=== PATIENT | female | born 1965 | race Asian ===

== ENCOUNTER 2025-07-10 05:21 | Day surgery (SDC) | payer BC, OTHER ==
[2025-07-08 10:31] LABS: MEAN PLATELET VOLUME 7.7 FL (7.4-10.4); PRE OP HEMATOCRIT 40.6 % (35.0-45.0); PRE OP HEMOGLOBIN 13.7 g/dL (12.0-16.0); PRE OP PLATELET COUNT 220 X10'3 (140-440); PRE OP WHITE BLOOD COUNT 7.7 10'3 (4.8-10.8); RED CELL DISTRIBUTION WIDTH 13.7 % (11.5-14.5)
[2025-07-08 10:36] LABS: LEUKOCYTE ESTERASE ,URINE NEGATIVE (Neg); NITRITES, URINE NEGATIVE (Neg); OCCULT BLOOD,URINE SMALL (Neg)
[2025-07-08 10:44] LABS: UA COLLECTION TYPE CLN CATCH MIDSTREAM
[2025-07-08 10:47] LABS: CREATININE 1.00 MG/DL (0.40-0.90); PRE OP ALT 22 U/L (30-65); PRE OP ANION GAP 5 (8-16); PRE OP AST 43 U/L (10-37); PRE OP BILIRUB, TOTAL 0.4 MG/DL (0.0-1.0); PRE OP GLUCOSE 84 MG/DL (70-104); PRE OP SODIUM 145 MMOL/L (135-145); TOTAL CARBON DIOXIDE 32.4 MMOL/L (24-32); eGFR 57 ML/MIN
[2025-07-08 10:51] LABS: PRE OP POTASSIUM 3.3 MMOL/L (3.4-5.1)
[2025-07-08 11:00] LABS: SQUAMOUS EPITHELIAL CELL,UR FEW /LPF (FEW)
[2025-07-08 11:01] LABS: MUCUS STRANDS FEW /LPF (Neg)
[2025-07-08 11:03] LABS: WBC CLUMPS,URINE MODERATE /HPF (NEGATIVE)
--- NOTE | 2025-07-08 11:58 | RADIOLOGY REPORT ---
DI CHEST,TWO VIEWS CLINICAL HISTORY: PREOP, pain COMPARISON: None TECHNIQUE: Frontal and lateral view of the chest was obtained FINDINGS: Lines and Tubes: None Lungs: No focal consolidation. Pleura: No effusion. No pneumothorax. Cardiomediastinal contours: Unremarkable Bones: No acute osseous abnormality. IMPRESSION: No acute cardiopulmonary disease.
[2025-07-10] VITALS (24 sets, daily range): BP systolic 115–154; BP diastolic 71–86; PULSE 61–109; RESP 11–17; TEMP 97.2–98.5; O2SAT 96–100
[~2025-07-10] VITALS: Ht 149.9 cm; Wt 55.0 kg
[~2025-07-10 05:21] MED LIST: AMLO2.5T5 PO; PANT40TA54 PO
[2025-07-10] MEDS: ceFOXitin sod/dextrose 2g/50ml 50 ML IV ONE (05:30)
[2025-07-10] MEDS ORDERED: midazolam 1 mg/ML 2ml injection ONE (07:11)
[2025-07-10] MEDS ORDERED: fentaNYL/PF 50MCG/1 ML 2ML syringe ONE ×2 (07:11→11:34)
[2025-07-10] MEDS ORDERED: BUPIVAcaine/PF 2.5mg/ml (0.25%) 10ml vial ONE ×2 (07:12→08:06)
[2025-07-10] MEDS ORDERED: LIDOcaine 1%/PF 5ML 10 MG/ML VIAL ONE (07:13)
[2025-07-10] MEDS ORDERED: dexamethasone sod phosphate 4mg/ml inj. ONE (07:14)
[2025-07-10] MEDS ORDERED: acetaminophen 1,000mg/100ml IV 100 ML IV ONE (07:14)
[2025-07-10] MEDS ORDERED: ondansetron/PF 4mg/2ml inj ONE (07:15)
[2025-07-10] MEDS ORDERED: rocuronium 10mg/ml inj IV ONE (07:15)
[2025-07-10] MEDS ORDERED: glycopyrrolate 0.2mg/ml inj ONE (07:15)
[2025-07-10] MEDS: ringers solution, lacted 1,000 ML IV SCH ×3 (07:15→11:59)
[2025-07-10] MEDS ORDERED: morphine 4 MG/ML inj SYRINge IV PRN (07:20)
[2025-07-10] MEDS ORDERED: hydrALAZINE 20mg/ml inj. IV PRN (07:20)
[2025-07-10] MEDS ORDERED: labetalol 20mg/4ml (5mg/ml) syringe IV PRN (07:20)
[2025-07-10] MEDS ORDERED: ondansetron/PF 4mg/2ml inj IV PRN ×2 (07:20→11:55)
[2025-07-10] MEDS ORDERED: fentaNYL/PF 50MCG/1 ML 2ML syringe IV PRN ×2 (07:20)
[2025-07-10] MEDS ORDERED: vasoPRESSIN 20 units/ml inj. ONE (08:01)
[2025-07-10] MEDS ORDERED: labetalol 20mg/4ml (5mg/ml) syringe IV ONE (08:50)
[2025-07-10] MEDS ORDERED: clindamycin phosphate 40gm vag cream ONE (10:41)
[2025-07-10] MEDS ORDERED: fluoroscein sod 10% (100mg/ml) 5ml vial ONE (11:30)
[2025-07-10] MEDS ORDERED: HYDROcodone/acetaminophen 10/325mg tab PO PRN (11:55)
[2025-07-10] MEDS ORDERED: normal saline 500ml IV soln 500 ML IV PRN (11:55)
[2025-07-10] MEDS ORDERED: magnesium hydroxide 30ml (MOM) UD suspension PO PRN (11:55)
[2025-07-10] MEDS ORDERED: metoclopramide 5 mg/ml inj IV PRN (11:55)
--- NOTE | 2025-07-10 13:39 | OPERATIVE REPORT ---
DATE OF SURGERY: 07/10/2025 DICTATING PHYSICIAN: Sotero Disla MD PREOPERATIVE DIAGNOSIS: Pelvic organ prolapse. POSTOPERATIVE DIAGNOSIS: Pelvic organ prolapse. SURGEON: Sotero Disla MD LOCAL BULK DRIVER: PRIMITIVO Godoy Do All Operator ANESTHESIOLOGIST: Dr. Martin. ANESTHESIA: General. PROCEDURES: Laparoscopic-assisted vaginal hysterectomy with bilateral salpingo-oophorectomy, uterosacral vaginal vault suspension, anterior and posterior repairs, and cystoscopy. ESTIMATED BLOOD LOSS: 200 mL. COMPLICATIONS: None. INDICATIONS: The patient is a 59-year-old postmenopausal female with significant pelvic organ prolapse. The patient declined conservative management with a pessary and agreed to the above procedures. LAPAROSCOPIC FINDINGS: Grossly normal-appearing uterus, tubes, and ovaries, there was notable posterior uterine fibroid. No other masses were seen. On vaginal inspection, again, there was moderate uterine prolapse, a moderate cystocele, and a very large rectocele extending along the length of the vagina. TECHNIQUE: The patient was taken to the OR where general anesthesia was found to be adequate. She was placed in a lithotomy position. She was prepped and draped in the usual sterile fashion. The cervix was infiltrated with a dilute solution of vasopressin and a GLENDY manipulator was placed and secured in the usual fashion. A transurethral catheter was placed. We changed gloves. A Veress needle was introduced through the umbilicus and the abdomen was insufflated with CO2 gas to 15 mmHg. The Veress needle was removed and a 5 mm trocar was placed through the umbilicus. An additional 5 mm port was placed at the right lower quadrant followed by an 8 mm port at the left lower quadrant. Pelvic organs were inspected with findings as noted above. In view of the patient's desires for bilateral salpingo-oophorectomy, we proceeded to LAVH and BSO. The right infundibulopelvic ligament was identified and sequentially coagulated and divided with the LigaSure device. The tube and ovary were then amputated at the tuboovarian uterine ligament complex. This was placed in the cul-de-sac for later extraction. The right round ligament was then coagulated and divided. The incision was then extended inferiorly along the anterior and posterior leaves of the broad ligament to the level of the cardinal ligaments. The uterine vessels were identified and coagulated and divided. We then proceeded to the left aspect. The left infundibulopelvic ligament was sequentially coagulated and divided with the LigaSure device. The incision was then extended anteriorly to include the left round ligament and the incision was extended inferiorly and anteriorly along the anterior leaves of the left broad ligament to the level of the cardinal ligaments. The left uterine vessels were identified and coagulated and divided. The vesicouterine peritoneum was then identified and sequentially transversely coagulated and divided with the LigaSure device. The bladder was then dissected up bluntly exposing the cervix. Anterior and posterior colpotomies were then sequentially performed with application of coagulating current through a monopolar spatula. At this point, the uterosacral ligaments were identified bilaterally and tagged for later identification. The CO2 gas was allowed to egress and we proceeded to the vaginal aspect of the surgery. The GLENDY manipulator was removed. The cervix was placed under traction at the anterior lip with a single-tooth tenaculum. The uterosacral ligaments were then sequentially and bilaterally clamp, cut, and suture ligated with 0 Vicryl sutures. The uterus with the attached left tube and ovary were then extracted at this time. Unfortunately, I was unable to locate the right tube and ovary within the cul-de-sac. The uterosacral ligaments were then sequentially and bilaterally suture ligated with 0 Ethibond sutures to the right and left margins of the vaginal cuff respectively. The vaginal cuff was then reapproximated with interrupted sutures of #0 Vicryl. The extent of the cystocele was then noted and the midline of the vaginal epithelium was infiltrated with a dilute solution of vasopressin. The epithelium was then sharply divided with Metzenbaum scissors. T-clamps were placed bilaterally for traction along the incision and the pubovesical fascia was identified and dissected off of the epithelium bilaterally. Plicating sutures with 2-0 Vicryl were placed along the incision. The excess vaginal epithelium was trimmed away. The vaginal epithelium was then closed with a running 2-0 Vicryl suture. We then proceeded to the posterior repair. The rectocele was noted to be quite extensive extending from the introitus to the vaginal cuff. Again, the midline was infiltrated with a dilute solution of vasopressin. The epithelium was divided along the length of the rectocele. The rectovaginal fascia was then dissected up bluntly and plicated with multiple 0 Vicryl sutures. The excess vaginal epithelium was trimmed away. Vistaseal was then applied to the area due to some oozing. Excellent hemostasis was obtained and the vaginal epithelium was closed with a running 2-0 Vicryl suture. A cystoscopy was now performed for evaluation of ureteral patency, which was confirmed after IV fluorescein was administered to the patient with clear ejection sequentially through the ureteral jets bilaterally. The procedure was terminated. We then proceeded to the final laparoscopic procedure. Hemostasis was confirmed throughout the pelvis. The right tube and ovary specimen was then located. The umbilical trocar was removed and the incision was extended bluntly to approximately 10 mm. An Endobag was placed intraabdominally and deployed under direct visualization with the laparoscope. The specimen was placed within the Endobag and extracted without difficulty. The umbilical fascia was then closed with a [id number] #0 Vicryl with the assistance of a GraNee needle. A solution of Marcaine and saline was then freely sprayed over the dome of the liver. The CO2 gas was allowed to egress, no bleeding was noted. All trocars leaves were removed. The skin incisions were then sequentially closed with 4-0 Vicryl subcuticularly and sealed off with Dermabond. Sponge, lap, instruments and needle counts were reported correct. COMPLICATIONS: None. PATHOLOGY: Uterus, tubes, and ovaries. DISPOSITION: The patient was taken to recovery in stable condition. Sotero Disla MD TID: [id number] RECEIPT: [id number] EVELIN SALOMON
[2025-07-10] MEDS: ketorolac trometh 30MG/ML vial 30 MG/ML VIAL IV PRN (14:03)
[2025-07-10] MEDS: calcium carbonate 500mg chew tablet PO PRN (16:31)
[2025-07-10] MEDS: docusate sod 100mg capsule PO SCH (19:59)
[2025-07-10] MEDS: HYDROcodone/acetaminophen 10/325mg tab PO PRN (22:07)
[2025-07-11 02:00] VITALS: BP 136/73; PULSE 116; RESP 18; TEMP 98.4; O2SAT 97
[2025-07-11 05:04] LABS: MEAN PLATELET VOLUME 7.9 FL (7.4-10.4); RED CELL DISTRIBUTION WIDTH 13.6 % (11.5-14.5)
[2025-07-11 05:17] LABS: CREATININE 0.96 MG/DL (0.40-0.90); TOTAL CARBON DIOXIDE 29.1 MMOL/L (24-32); eCRCL 44 ML/MIN; eGFR 60 ML/MIN
[2025-07-11 06:00] VITALS: BP 146/86; PULSE 49; RESP 18; TEMP 98.1; O2SAT 97
[2025-07-11 07:28] VITALS: RESP 18; O2SAT 97
[2025-07-11 10:00] VITALS: BP 117/58; PULSE 82; RESP 16; TEMP 97.9; O2SAT 98
--- NOTE | 2025-07-11 13:54 | DISCHARGE SUMMARY ---
DATE OF DISCHARGE: 07/10/2025 DICTATING PHYSICIAN: Sotero Disla MD ADMISSION DIAGNOSIS: The patient was admitted for surgical management of pelvic organ prolapse. DISCHARGE DIAGNOSES: Status post laparoscopic-assisted vaginal hysterectomy with bilateral salpingo-oophorectomy, uterosacral vaginal vault suspension, anterior and posterior repairs, and cystoscopy. ADMISSION INFORMATION: The patient is a 59-year-old postmenopausal female, who was referred to my office for evaluation of pelvic organ prolapse. The patient reported significant discomfort with the prolapse and declined management with the use of a pessary. Agreed and desired surgical management. HOSPITAL COURSE: On 07/10, the patient was taken to the OR where the above procedures were performed without complications. Her blood loss was averaged. Her postoperative course has been uncomplicated. The patient has remained afebrile throughout her hospital stay. PHYSICAL EXAMINATION: GENERAL: Today, the patient reports doing well, the patient is ambulating without difficulty and tolerating p.o. The patient states she is ready to go home. CURRENT VITAL SIGNS: Temperature of 97.9, blood pressure is 117/58, pulse of 82, respiratory rate of 16 and saturating 98% on room air. ABDOMEN: Soft, minimally distended. There is appropriate tenderness for postop day #1. Her incisions are clean, dry, and intact. PELVIC: Deferred. SIGNIFICANT LABS: The patient's current hemoglobin is 11.7. White count is 13.9. Chemistry panel is within normal limits. The patient's output is appropriate. ASSESSMENT AND PLAN: A 59-year-old female admitted for surgical management of pelvic organ prolapse. Status post LAVH, BSO, AMP repairs, and cystoscopy. She is doing well on postop day #1 and deemed ready for discharge home. FOLLOWUP: She will follow up in my office in 2 weeks. Duration of disability is approximately 6 weeks. DIET: To be regular. DISCHARGE MEDICATIONS: The patient will continue her outpatient medications as well as p.r.n. pain meds and a stool softener. ACTIVITY: She has been instructed to observe 6 weeks of pelvic rest and not to lift objects over 10 pounds. The patient can shower. She has been instructed to take no baths. DISPOSITION: Plan is to discharge her home today in improved condition. Sotero Disla MD TID: [id number] RECEIPT: [id number] EVELIN
--- NOTE | 2025-07-11 17:57 | PATHOLOGY REPORT ---
[facility] [address] [place] [address] SURGICAL PATHOLOGY REPORT CaseNumber: [id number] Surgeon:Sotero Disla M.D. CLINICAL INFORMATION CLINICAL INFORMATION: Prolapse, leiomyoma. DIAGNOSIS DIAGNOSIS: UTERUS, OVARIES. FALLOPIAN TUBES; LAPAROSCOPIC A - BENIGN LEIOMYOMATA OF UTERINE CORPUS. - ADENOMYOSIS. - ATROPHIC CHANGES. MICROSCOPIC DESCRIPTION MICROSCOPIC DESCRIPTION: Ten slides are examined. The candidate leiomyomas which range from subserosa l to intramural to submucosal are confirmed by microscopic examination. They have the usual lobulated contours and are composed of whorls and fascicles of bland smooth muscle cells. There are areas of h yalinization. There is no hemorrhage or necrosis or significant cytologic atypia. There is adenomyosi s which to extends to a depth of 1.5 cm in an area where the myometrium measures up to 1.9 cm in [facility]. Bias Binding Cutter sections of cervix do not reveal dysplasia. Bias Binding Cutter sections of serosa s ample a subserosal leiomyoma. Endometriosis is not identified. Bias Binding Cutter sections of both fallo pian tubes including complete transmural cross sections and distal fimbriated end do not reveal endom etriosis or dysplasia/neoplasia. Both of the ovaries are histologically unremarkable. They show babb es consistent with postmenopausal state. There is no endometriosis or neoplasia. (bb) GROSS DESCRIPTION GROSS DESCRIPTION: Received in a container of formalin labeled with the patient's name, number, and " uterus, tubes, bilateral ovaries" is an 84 gram uterus with attached cervix, attached left adnexa, an d detached right adnexa. The uterine corpus measures 5.5 x 5 x 4 cm. The attached cervix measures 3 c m long by 2.5 cm in diameter. The cervical os is multiparous. The serosa is somewhat roughened and pi nk-corea. There is a 1 cm subserosal nodule. Sectioning reveals a red-corea endometrium which measures up to 0.2 cm. There are two submucosal nodules which measure 0.3 and 0.7 cm.. Sectioning the myometrium reveals two intramural well-circumscribed whirled, white nodules with a bulging cut surface which me asure 1.4 and 1.8 cm. The myometrium measures up to 2 cm thick. Sectioning the cervix reveals andrews-wh ite mucosa without areas of ulceration. The right ovary measures 2 x 2 x 1 cm. Sectioning the ovary r eveals a solid cut surface. The attached segment of fallopian tube measures 4 cm long by 0.4 cm in di ameter. The fallopian tube is unremarkable. The left ovary measures 2 x 1.7 x 0.7 cm. Sectioning the ovary reveals a solid cut surface the attached segment of fallopian tube measures 5 cm long by 0.4 cm in diameter. The fallopian tube is unremarkable. Sections are submitted as follows: A1) CervixA2-A3) Endo and myometriumA4) Submucosal nodulesA5) Intramural nodulesA6-A7) Right adnexaA 8-A9) Left qawphoW80) Serosa The time at which the specimen was removed was 1020. The time at which the specimen was placed in [facility] was not provided. (wyb) Electronically signed by: Juan Bonds M.D. 07/11/2025 5:22:00 PM
== END 2025-07-11 15:09 | disposition home or self-care (01) ==
LOC: PAS 05:21 → SUR 3N 11:54 → PAS 07-11 15:09
PROVIDERS: ATTEND Obstetrics & Gynecology Obstetrics
DX: N81.4 Uterovaginal prolapse, unspecified (principal); N80.03 Adenomyosis of the uterus; D25.9 Leiomyoma of uterus, unspecified; I10 Essential (primary) hypertension; K21.9 Gastro-esophageal reflux disease without esophagitis; Z79.1 Long term (current) use of non-steroidal anti-inflammatories (NSAID); Z79.891 Long term (current) use of opiate analgesic; Z79.899 Other long term (current) drug therapy; Z98.890 Other specified postprocedural states; Z88.8 Allergy status to other drugs, medicaments and biological substances
CPT/HCPCS: 36415; 57265; 57283; 58552; 71046; 80048; 80053; 81001; 82948; 85025; 86885; 86900; 86901; 87081; 87088; J0131; J0694; J1100; J1885; J2250; J2270; J2405; J2704; J2710; J3010; J3490; J7030; J7120; Z7506; Z7508; Z7512; A4314; A4618; A7000; G0378

== ENCOUNTER 2025-10-30 15:46 | Inpatient (IN) | payer BC ==
[~2025-10-30] VITALS: Ht 149.9 cm; Wt 54.5 kg
--- NOTE | 2025-10-30 15:54 | ELECTROCARDIOGRAPH REPORT ---
[facility] Test Date: 2025-10-30 Test Time: 15:50:34 Pat Name: MAURICIO RENAE Department: EMERGENCY ROOM Room: [place] [address] Gender: F Employee Communications Manager: NATASHA : 1965 Requested By: REUBEN BERMAN Order Number: [id number] Reading MD: Dr. JANNY Doss Measurements Intervals Mead Rate: 100 P: 73 ID: [id number] QRS: 60 QRSD: 76 T: 5 QT: 343 QTc: 443 Interpretive Statements Sinus tachycardia Abnormal R-wave progression, early transition Electronically Signed On 10-31-2025 16:44:[address] JANNY Doss Please click the below link to view image of tracing.
[2025-10-30 16:17] LABS: MEAN PLATELET VOLUME 7.9 FL (7.4-10.4)
[2025-10-30 16:19] LABS: RED CELL DISTRIBUTION WIDTH 13.8 % (11.5-14.5)
--- NOTE | 2025-10-30 16:26 | RADIOLOGY REPORT ---
CHEST RADIOGRAPH INDICATION: CP TECHNIQUE: Single frontal view of the chest was obtained COMPARISON: None FINDINGS: Lines and Tubes: None Lungs: No focal consolidation. Pleura: No effusion. No pneumothorax. Cardiomediastinal contours: Heart size is within normal limits with uncoiling of the aorta. Bones: No acute osseous abnormality. IMPRESSION: No acute cardiopulmonary disease.
[2025-10-30 16:42] LABS: CREATININE 0.96 MG/DL (0.40-0.90); PRO BRAIN NATRIURETIC PEPTIDE 104 PG/ML (0-125); TOTAL CARBON DIOXIDE 24.5 MMOL/L (24-32); eCRCL 44 ML/MIN; eGFR 60 ML/MIN
--- NOTE | 2025-10-30 17:56 | Physician Documentation ---
History of Present Illness ~ Chief Complaint: Chest Pain Stated Complaint: WEAKNESS Time Seen by MD: 17:33 Mode of Arrival: EMS HPI The patient is a 59-year-old female with a history of hypertension and GERD who reportedly passed out in the bathtub while having chest pain. Her pulled her from the bath. They live remotely and she was brought here by helicopter. At the time of taking this history she has no complaint of chest pain, chest discomfort or shortness of breath. Medication Reconciliation Allergies: Coded Allergies: lisinopril (Verified Adverse Reaction, Intermediate, COUGH, 07/09/25) olmesartan (Verified Adverse Reaction, Intermediate, FEET BURN, 07/09/25) Scheduled Amlodipine Besylate (Amlodipine Besylate), 1 TAB PO DAILY, (Reported) Calcium Carbonate* (Oscal*), 1 TAB PO DAILY, (Reported) Pantoprazole Sodium (Pantoprazole Sodium), 1 TAB PO DAILY, (Reported) Past Medical History Smoking Status: Never smoker Review of Systems ROS Constitutional: Denies chills, fatigue, fever, weight gain or weight loss. HEENT: Denies hearing loss, sinus pressure or visual changes. Respiratory: Difficulty breathing previously, resolved at this time. Cardiovascular: Prior chest pain none now. Gastrointestinal: Denies abdominal pain, blood in stool, constipation, diarrhea, heartburn, loss of appetite, nausea or vomiting. Genitourinary: Denies painful urination (dysuria), excessive amount of urine (polyuria) or urinary frequency. Metabolic/Endocrine: Denies cold intolerance, heat intolerance, excessive thirst (polydipsia) or excessive hunger (polyphagia). Neurological: Denies dizziness, extremity numbness, extremity weakness, headaches, seizures or tremors. Psychiatric: Denies anxiety or depression. Integumentary: Denies breast discharge, breast lump, hives, mole change(s), rash or skin lesion. Musculoskeletal: Denies back pain, joint pain, joint swelling or neck pain. Hematologic: Denies easily bleeding, easily bruises, lymphedema or issues with blood clots. Immunologic: Denies food allergies or seasonal allergies. Physical Exam Vital Signs: Heart Rate: 104, Respiratory Rate: 19, BP: 146/69, Pulse Oximetry: 98, Weight: 54.550 Oxygen Flow Rate: 0 Physical Exam Physical Exam Vitals and nursing note reviewed. Constitutional: General: Patient is awake, alert, oriented x 4 in no acute distress and well appearing. Speech is clear and lucid. Appearance: Normal appearance. Patient is not ill-appearing, toxic-appearing or diaphoretic. HENT: Head: Normocephalic and atraumatic. Mouth/Throat: Mouth: Mucous membranes are moist. Pharynx: Oropharynx is clear. Eyes: General: No scleral icterus. Extraocular Movements: Extraocular movements intact. Pupils: Pupils are equal, round, and reactive to light. Neck: Supple, no Kernig or Brudzinski sign. Cardiovascular: Rate and Rhythm: Normal rate and regular rhythm. Heart sounds: No murmur heard. Pulmonary: Effort: No respiratory distress. Breath sounds: No wheezing, rhonchi or rales. Abdominal: General: There is no distension. Palpations: There is no fluid wave, hepatomegaly or mass. Tenderness: There is no abdominal tenderness. There is no guarding. Musculoskeletal: General: No swelling or deformity. Skin: Coloration: Skin is not jaundiced. Findings: No erythema or rash. Neurological: Mental Status: Patient is alert. Progress Results/Orders Results/Orders Orders - REUBEN BERMAN MD Chest,Single View (10/30/25 15:51) Monitor (10/30/25 15:51) Saline Lock (10/30/25 15:51) Oxygen (10/30/25 15:51) Page Hospitalist (10/30/25 17:47) Cta Chest Pe (10/30/25 17:50) Ct Head (10/30/25 17:50) Completed Orders - REUBEN BERMAN MD Chest,Single View (10/30/25 15:51) Cbc/Diff (10/30/25 15:51) BMP (10/30/25 15:51) PBNP (10/30/25 15:51) Electrocardiogram (10/30/25 15:51) Hs Troponin I W Calculations (10/30/25 15:51) Hs Troponin I W Calculations (10/30/25 17:51) Hs Troponin I W Calculations (10/30/25 18:51) Cta Chest Pe (10/30/25 17:50) Ct Head (10/30/25 17:50) Hgb A1c (10/30/25 16:06) Vital Signs 10/30/25 10/30/25 10/30/25 10/30/25 15:52 16:12 17:00 18:03 Pulse 100 95 104 90 Resp 18 11 19 17 B/P (MAP) 123/73 135/78 (97) 146/69 (94) 136/82 (100) Pulse Ox 100 98 98 97 O2 Flow Rate 0 0 0 0 10/30/25 10/30/25 19:15 20:05 Pulse 85 105 Resp 16 14 B/P (MAP) 141/80 (100) 140/81 (100) Pulse Ox 98 98 O2 Flow Rate 0 0 Laboratory Tests Test 10/30/25 16:06 10/30/25 17:17 10/30/25 18:57 White Blood Count 12.6 H Red Blood Count 4.35 Hemoglobin 13.1 Hematocrit 38.2 Mean Corpuscular Volume 87.7 Mean Corpuscular Hemoglobin 30.1 Mean Corpuscular Hemoglobin Concent 34.3 Red Cell Distribution Width 13.8 Platelet Count 212 Mean Platelet Volume 7.9 Neutrophils (%) (Auto) 84.3 H Lymphocytes (%) (Auto) 11.3 L Monocytes (%) (Auto) 3.7 Eosinophils (%) (Auto) 0.4 Basophils (%) (Auto) 0.3 Neutrophils # (Auto) 10.6 H Lymphocytes # (Auto) 1.4 Monocytes # (Auto) 0.5 Eosinophils # (Auto) 0.1 Basophils # (Auto) 0.0 CBC Comment Sodium Level 142 Potassium Level 3.3 L Chloride Level 104 Carbon Dioxide Level 24.5 Anion Gap 14 Blood Urea Nitrogen 15 Creatinine 0.96 H Estimated GFR/1.73 m2 60 BUN/Creatinine Ratio 15.6 Glucose Level 171 H Hemoglobin A1c 5.3 Calcium Level 9.0 Troponin I High Sensitivity 161 *H 263 *H 257 *H Pro-B-Type Natriuretic Peptide 104 Albumin 3.7 Chemistry Comments Troponin I High Sens Percent Delta 63 2 Troponin I Hi Sens Absolute Change 102 -6 Medical Decision Making Additional information obtaine: N/A Findings This 59-year-old lady had a syncopal episode in the bathtub. Her initial troponin here is 161. Heart Score: 4 Differential Dx:Considerations: Include: angina, aortic dissection, chest wall pain, esophageal reflux/spasm, myocardial infarction, pericarditis, pleuritis, pneumothorax, pulmonary embolus; Unlikely: cholelithiasis, CHF, costochondritis, gastritis, herpes zoster, pancreatitis, pneumonia, other Additional Information EKG medically necessary in the evaluation of chest pain and interpreted by me at the time of patient evaluation. Rhythm is sinus tachycardia with a rate of 100. Impression: Sinus tachycardia, otherwise normal EKG. ECG reading does not show any acute signs of obvious ischemia. No evidence of A- V block. No short SD, delta waves, or wide QRS concerning for [id number]-[id number]-[id number]. No long QT events on my read. I do not see evidence of Brugada with ST elevations in V1 through V3. No epsilon wave noted. No low voltage suggestive of pericardial effusion. No right ventricular strain pattern. Addendum Brief sign-out note I received sign-out on this patient at shift change. Pending CT head, CTA chest, and admission I personally interpreted the CT scan, and this shows no intracranial hemorrhage. No pulmonary embolus on the CTA chest. The patient was admitted to the medicine service for further workup and treatment Prashanth Ferrari MD Departure Disposition: ADMITTED INPATIENT Admitted to Inpatient Unit: to hospitalist Impression: Primary Impression: Chest pain Additional Impression: Syncopal episodes Referrals: NO PRIMARY CARE PROVIDER (PCP) Signature Scribe Signature: . Attestation: . REUBEN BERMAN MD Oct 30, 2025 17:56 PRASHANTH FERRARI MD Oct 31, 2025 04:00
[2025-10-30] MEDS ORDERED: magnesium sulf-water 4G/100mL 100 ML IV PRN (20:05)
[2025-10-30] MEDS ORDERED: potassium Cl 40MEQ/1/2NS 520ml 520 ML IV PRN (20:05)
[2025-10-30] MEDS ORDERED: magnesium Cl slow-release 64mg tablet PO PRN (20:05)
[2025-10-30] MEDS ORDERED: potassium Cl 20 mEq SR tablet PO PRN (20:05)
[2025-10-30] MEDS ORDERED: ondansetron/PF 4mg/2ml inj IV PRN (20:05)
[2025-10-30] MEDS ORDERED: magnesium sulf-water 2g/50mL 50 ML IV PRN (20:05)
[2025-10-30] MEDS ORDERED: HYDROcodone/acetaminophen 5mg/325mg tablet PO PRN (20:05)
[2025-10-30] MEDS ORDERED: mag hydrox/Alum hydrox/simeth 30ml oral suspension PO PRN (20:05)
[2025-10-30] MEDS ORDERED: magnesium hydroxide 30ml (MOM) UD suspension PO PRN (20:05)
[2025-10-30] MEDS ORDERED: HYDROcodone/acetaminophen 10/325mg tab PO PRN (20:05)
--- NOTE | 2025-10-30 20:17 | RADIOLOGY REPORT ---
PROCEDURE: [facility] Study Date and Requested Time: 10/30/2025 07:51 PM History: Syncopal episode, elevated troponin COMPARISON: None Dose: CTDI: 55.35 mGy DLP: 873.38 mGycm TECHNIQUE: Multiplanar images obtained through the brain without intravenous contrast. FINDINGS: Normal brain volume and formation. No hemorrhages, masses, mass effect, midline shift, herniation or cytotoxic edema following a large vascular territory. No intra-axial or extra-axial fluid collections. No evidence of hydrocephalus. The basal cisterns are patent. Nonspecific Partially Empty sella. The cerebellar tonsils are in normal position. The cerebellum is unremarkable. The orbits and globes are unremarkable. The paranasal sinuses and mastoids are clear. There are no worrisome calvarial lesions. IMPRESSION: No evidence of acute intracranial abnormality.
[2025-10-30] MEDS: normal saline 1000ml 1,000 ML IV SCH (20:24)
--- NOTE | 2025-10-30 20:37 | RADIOLOGY REPORT ---
EXAM: CT CTA CHEST PE W/ IV CONTRAST History: Syncopal episode, elevated troponin Comparison Study: DI CHEST,SINGLE VIEW on DOS: 10/30/25, DI CHEST,TWO VIEWS on DOS: 07/08/25 TECHNIQUE: A digital hospitalist image was obtained. During the uneventful, intravenous administration of contrast material, multislice data acquisition was obtained through the chest. 3-D postprocessing is performed by technologist including MIP imaging Radiation Dose : CTDI vol 7.3 mGy, DLP 236.8 mGy*cm. FINDINGS: Evaluation is degraded by respiratory motion. Lungs: Minimal dependent atelectasis. Pleura: Unremarkable Heart/Great vessels: Mild cardiomegaly. The aorta is unremarkable. No CT evidence of acute pulmonary embolism. Mediastinum: Unremarkable. Soft tissues/Bones: Unremarkable Upper abdomen: Right hepatic cyst. IMPRESSION: 1. No CT evidence of pulmonary embolism or acute intrathoracic abnormality.
--- NOTE | 2025-10-30 20:58 | HISTORY AND PHYSICAL-Residence ---
History & Physical Providers to CC Resident Creating Document: WALLYRIC SEGURA RES ~ History of Present Illness Reason for Admit\Complaint: SYNCOPE History of Present Illness This is a 59-year-old female with past medical history of hypertension and GERD was brought to our facility in a helicopter due to an episode of syncope. Patient's and daughter were present at the bedside at the time of the examination. According to them when the returned back from work, he found the patient in the bath tub unconscious. He immediately pulled her out and placed her on the floor. He saw that the patient was unconscious, had stiff body, was clenching her teeth tight . He immediately tried opening her mouth which is very stiff and put in a piece of cloth in it. As the patient was still unconscious and not responding to him, he started performing chest compressions on her for about 20 minutes. After stopping the compressions, in about 10 minutes or so the patient regained back her consciousness. Patient was confused, was feeling extremely weak. reports that he noticed some stools in the bathtub. The patient says that she did not have any symptoms prior to passing out in the bathtub, denied any complaints of chest pain, palpitations, dizziness, shortness of breath. The patient Does not remember anything else until after regaining consciousness. The immediately called 911 who brought patient to the ED. Patient says that she went into the bathtub at around 12:00 p.m. in the afternoon, and by the time the saw her, was around 1:30. Patient also reports that she had an episode of syncope earlier, not sure how long ago due to dizziness. Patient does report some chest discomfort, most likely from the chest compressions her performed on her. She also reports having mild bilateral headache, squeezing type. Denies any other complaints of shortness of breath, cough, chills, fevers. Allergies: Coded Allergies: lisinopril (Verified Adverse Reaction, Intermediate, COUGH, 07/09/25) olmesartan (Verified Adverse Reaction, Intermediate, FEET BURN, 07/09/25) Home Medications Home Medications Active Reported Amlodipine Besylate 2.5 Mg Tablet 1 Tab PO DAILY Pantoprazole Sodium 40 Mg Tablet.dr 1 Tab PO DAILY Past Medical History Past Medical History Hypertension Gerd Past Surgical History Surgical History Comment Hysterectomy due to fibroids in June this year Past Social History Social History Comment Patient denies smoking, consuming alcohol No illicit drug use Patient lives at home in [place] with her She has been staying at home for the last 3-4 months, 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 PCP Nimisha VILLAR All Other Systems: Reviewed and Negative Exam Vitals: Vital Signs Date Time Temp Pulse Resp B/P (MAP) Pulse Ox O2 Delivery O2 Flow Rate FiO2 10/30/25 19:15 85 16 141/80 (100) 98 0 General: General: Awake, oriented to person, place and time, not confused HEENT: Pale conjunctiva, sclerae clear, no icterus, pupil is equal in both sides, reactive to light, no ear discharge, no pharyngeal erythema Neck: Supple, no JVD, no lymphadenopathy and thyromegaly. Chest: Normal vesicular breath sounds, no wheezing Cardiovascular: S1-S2 regular sinus rhythm and, regular rate, no gallops, no rubs Abdomen: No visible peristalsis , Bowel sounds present on auscultation, soft, no tenderness, no guarding, no rigidity. Extremities: peripheral pulsations are intact on both sides Neurologic: Mental status: alert and conscious, oriented to place, person and time, preserved memory, normal speech. Cranial nerves I-XII: Normal. Motor system: Normal strength, 5/5 upper and lower extremities, no spasticity seen. Sensory system: Preserved temperature, pain and vibration sensation Cerebellar: No nystagmus, dysdiadochokinesia, normal [id number] testing. Musculoskeletal: No joint swelling, deformities, inflammations, Skin: Warm and dry. Diagnostic Data Last Recorded Lab Results: 10/30/25 1606 10/30/25 1606 Advance Care Planning Advanced Care plannin - 30 Minutes (Full code) Additional Plan Syncope Likely due to seizures Stroke not ruled out Patient lost consciousness prolonged period of time Had postictal confusion, and bowel incontinence Blood glucose within normal range Slightly increased WBC count 12.6 EKG shows sinus rhythm, no acute ST changes CT head shows no signs of acute intracranial abnormality Chest/thorax CTA shows no evidence of pulmonary embolism or acute intrathoracic abnormality MRI brain ordered CPK ordered U tox, urine analysis ordered. EEG ordered. orthostatics have been ordered echocardiogram, carotid ultrasound ordered Patient on telemetry monitoring Tele neuro consulted seizure precautions. Troponinemia Likely due to type 2 MD Troponins 161,263, 257,187 Patient denies any complaints of chest pain EKG shows no acute ischemic changes Mild hypokalemia- K- 3.3 Patient on potassium replacement protocol GERD- Continue pantoprazole Disposition- patient on telemetry monitoring. Tele neuro has been consulted. Continue to monitor Code Status: Full code DVT Prophylaxis: SubQ heparin Lines/Tubes: PIV Nutrition: Regular Prognosis: Guarded Ric Zuñiga PGY-1 I saw and I discussed the case with the resident team and I agree with assessment and plan as documented. Date of Service: Oct 30, 2025 Billing Provider: BOYD DIAZ MD, PREETHI, RES Oct 30, 2025 20:58 BOYD DIAZ MD Oct 31, 2025 09:52
--- NOTE | 2025-10-30 23:09 | [facility] CONSULT REPORT ---
[facility] Procedure Note [facility] Procedure Note Consult [facility] Note # Demographics Consult Type: General Neurology Patient Location: Emergency Room First Name: MAURICIO Last Name: BATOOL Date of : 1965 Age: 59 Gender: Female Facility: [facility] Time of Initial Page (): 10/30/2025 21:40 First Contact with Site (): 10/30/2025 21:48 # HPI Chief Complaint: - altered mental state History: 59F with HTN presented after episode of syncope. In bathtub when she passed out; unclear how long she was unconscious. Found in tub by . He removed her from the tub, started chest compressions x20 minutes, and then she regained consciousness after about 10 more minutes. Had lost control of bowels in the bathtub. No chest tub, shortness of breath. BP 141/80. No history of seizures. Had an episode of dizziness/fainting recently. No history of head trauma. Cooked lunch, started having hip pain. Took an ibuprofen and then got in a shallow bath. Does not remember anything else until after regaining consciousness. Hands and legs were all clenched up when her found her. # Scores Time of exam and NIHSS (): 10/30/2025 22:27 Level of Consciousness 1a: [0] = Alert; keenly responsive LOC Questions 1b: [0] = Answers both questions correctly LOC Commands 1c: [0] = Performs both tasks correctly Best Gaze 2: [0] = Normal Visual 3: [0] = No visual loss Facial Palsy 4: [0] = Normal symmetrical movements Motor Arm Left 5a: [0] = No drift Motor Arm Right 5b: [0] = No drift Motor Leg Left 6a: [0] = No drift Motor Leg Right 6b: [0] = No drift Limb Ataxia 7: [0] = Absent Sensory 8: [0] = Normal Best Language 9: [0] = No aphasia Dysarthria 10: [0] = Normal Extinction and Inattention 11: [0] = No abnormality NIHSS Total: 0 # Assessment Impression: - Seizure-like Activity Differential Diagnosis: - Syncope # Plan Imaging: (urgency: routine): - MRI Brain with AND without contrast Diagnostic Test: 1hr prolonged EEG Other: - If patient has any neurological deterioration please call me back immediately - seizure precautions Additional Recommendations: First time possible seizure, would not start antiseizure medication at this time. If there is a suspicious lesion on MRI or focal abnormality on EEG, would start antiseizure medication Disposition: admit # Logistics Attestation of consult completion: The patient is located at: [facility]. Facility staff participated in the visit. I performed this telemedicine visit from my offsite office utilizing interactive 2 way audio and visual telecommunication technology at the request of the onsite emergency room provider. Consent: Verbal consent was obtained from the patient and/or family for this encounter. Total time spent in telemedicine encounter: I spent 10 minutes reviewing clinical data and/or imaging, obtaining history, examining the patient, communicating with the onsite care team, and in preparation of this report. Electronically signed at 10/30/2025 23:08 ([place] Time) by Obinna Ramos MD Neuro Consult Order placed for: Yes OBINNA RAMOS MD Oct 30, 2025 23:09
[2025-10-31] VITALS (9 sets, daily range): BP systolic 110–134; BP diastolic 65–95; PULSE 72–93; RESP 16–18; TEMP 97.1–98.3; O2SAT 95–98
[2025-10-31] MEDS ORDERED: OSC500T PO (03:04)
[2025-10-31 03:22] LABS: LEUKOCYTE ESTERASE ,URINE NEGATIVE (Neg); NITRITES, URINE NEGATIVE (Neg); OCCULT BLOOD,URINE TRACE-INTACT (Neg)
[2025-10-31 03:24] LABS: UA COLLECTION TYPE CLN CATCH MIDSTREAM
[2025-10-31 03:29] LABS: SQUAMOUS EPITHELIAL CELL,UR FEW /LPF (FEW)
[2025-10-31 03:36] LABS: URINE AMPHETAMINE SCREEN NEGATIVE (Neg); URINE BARBITUATE SCREEN NEGATIVE (Neg); URINE BENZODIAZEPINES SCREEN NEGATIVE (Neg); URINE CANNABINOID SCREEN NEGATIVE (Neg); URINE COCAINE SCREEN NEGATIVE (Neg); URINE METHADONE SCREEN NEGATIVE (Neg); URINE OPIATE SCREEN NEGATIVE (Neg); URINE PHENCYCLIDINE SCREEN NEGATIVE (Neg)
[2025-10-31 06:54] LABS: MEAN PLATELET VOLUME 7.5 FL (7.4-10.4); RED CELL DISTRIBUTION WIDTH 13.9 % (11.5-14.5)
[2025-10-31 07:18] LABS: CHOL/HDL RATIO 4.3 (0.00-4.99); CREATININE 0.71 MG/DL (0.40-0.90); LDL CHOLESTEROL 103 MG/DL (50-100); TOTAL CARBON DIOXIDE 28.9 MMOL/L (24-32); eCRCL 60 ML/MIN; eGFR 85 ML/MIN
[2025-10-31] MEDS: docusate sod 100mg capsule PO SCH (08:00)
[2025-10-31] MEDS: K and/or MAG REPLACEMENT MC SCH (08:00)
--- NOTE | 2025-10-31 09:39 | VASCULAR REPORT ---
CLINICAL HISTORY: Syncope TECHNIQUE: Estrada-scale, Color and Duplex Doppler imaging of the bilateral carotid systems was performed. COMPARISON: None FINDINGS: Right Carotid system: There is no plaque present in the right carotid system. Left Carotid system: There is no plaque present in the left carotid system. The following flow velocities were obtained (cm/sec). Right Carotid System: ICA PSV: 81 cm/sec ICA PDV: 40 cm/sec ICA/CCA Ratio: 1.2 Left Carotid System: ICA PSV: 85 cm/sec ICA PDV: 37 cm/sec ICA/CCA Ratio: 1.1 The right and left common carotid and external carotid arteries are patent. There is antegrade flow in both vertebral arteries and external carotid arteries. IMPRESSION: NORMAL RIGHT CAROTID SYSTEM. NORMAL LEFT CAROTID SYSTEM. Estimation of carotid stenosis is based on velocity parameters that correlate the residual internal carotid diameter with that of the more distal vessel in accordance with the [place] Symptomatic Carotid Endarterectomy Trial (NASCET).
[2025-10-31] MEDS: heparin, porcine 5000 units/ml vial SQ SCH (09:44)
[2025-10-31] MEDS: pantoprazole 40mg Tablet.DR PO SCH (09:45)
[2025-10-31] MEDS: potassium Cl 20 mEq SR tablet PO PRN (09:45)
[2025-10-31] MEDS: calcium carbonate 500mg tablet PO SCH (09:45)
--- NOTE | 2025-10-31 17:20 | CARDIOLOGY REPORT ---
APPROVED REPORT EXAM: Comprehensive 2D, Doppler, and color-flow Echocardiogram. 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 3.30 cm IVC 14.91 mm FS (%) 42.9 % SV 38.1 ml CO 2.8 L/min M-Mode Dimensions Left Atrium(MM) 3.36 (2.5-4.0cm) Aortic Root 2.51 (2.2-3.7cm) Aortic Cusp Exc 1.60 (1.5-2.0cm) MV EPSS 0.3 (<0.5cm) Aortic Valve AoV Peak Nikita. 152.7 cm/s AoV VTI 30.3 cm AO Peak GR. 9.3 mmHg AO Mean GR. 5 mmHg LVOT VTI 23.40 cm LVOT Peak Nikita. 105.0 cm/s MASON(VTI)/BSA 2.21 cm2/m2 MASON (VTI) 2.21 cm2 AV DI 0.77 % Mitral Valve MV E Velocity 82.4 cm/s MV Peak Gr. 5 mmHg MV DECEL TIME 192 ms MV A Velocity 110.0 cm/s MV PHT 52 ms E/A Ratio 0.7 MVA (PHT) 4.23 cm2 MV VMax 114.5 cm/s TDI Lateral E' P. V 12.65 cm/s E/Lateral E' 6.5 Tricuspid Valve TR P. Velocity 255 cm/s RAP ESTIMATE 10 mmHg TR Peak Gr. 26 mmHg RVSP 36 mmHg LEFT VENTRICLE Normal LV size and wall thickness. Overall systolic function is normal. LVEF is 75%. RIGHT VENTRICLE RV is normal size and function. Elevated right heart pressures with an RVSP of 36 mmHg. ATRIA The left atrium size is normal. AORTIC VALVE Trileaflet AV appears mildly sclerotic without stenosis. No insufficiency by color and spectral flow Doppler. MITRAL VALVE Mild mitral annular calcification without stenosis. Trace regurgitation. TRICUSPID VALVE The tricuspid valve is normal in structure with mild regurgitation. PULMONIC VALVE Pulmonic valve is grossly normal in structure with physiologic insufficiency. GREAT VESSELS The aortic root is normal in size. The ascending aorta is normal in size. The IVC is normal in size and collapses >50% with inspiration. PERICARDIUM Normal pericardium. No effusion. Other Information Study Quality: Adequate Conclusion Normal LV size and wall thickness. Overall systolic function is normal. LVEF is 75%. RV is normal size and function. Elevated right heart pressures with an RVSP of 36 mmHg. The left atrium size is normal. Trileaflet AV appears mildly sclerotic without stenosis. No insufficiency by color and spectral flow Doppler. Mild mitral annular calcification without stenosis. Trace regurgitation. The tricuspid valve is normal in structure with mild regurgitation. Normal pericardium. No effusion.
--- NOTE | 2025-10-31 20:18 | PROGRESS NOTE ---
Daily Progress Note Providers to CC ~ no new complaint today no chest pain resting comfortably in the bed Central Line/PICC still needed: No Wagner-Non Protocol Wagner Indications Met/Not Met: F/C Indications Not Met Antibiotic Timeout Antibiotic Ordered?: No MRSA Education MRSA Education Provided to pt: No Subjective As above Objective Vital Signs Date Time Temp Pulse Resp B/P (MAP) Pulse Ox O2 Delivery O2 Flow Rate FiO2 10/31/25 15:00 98.3 83 18 130/70 (90) 98 Room Air 10/31/25 08:00 0.0 21 Vital signs, stable ,afebrile. Pulse Oximetry reflects adequate oxygenation. General: well developed, well nourished. Awake , alert, and oriented x4, resting comfortably in the bed, in no acute distress . Skin: Warm, dry, no pallor, no rash or petechiae. HEENT: Atraumatic, normocephalic, EOMI, anicteric sclera B; pink conjunctiva; PERRLA, normal oropharynx, moist oral and nasal mucosa. Tympanic membrane , nose , throat clear. Neck: Trachea midline. Supple, full range of motion, no JVD, bruit , hepatojugular reflex , lymphadenopathy or masses, or other lesions Cardiac: Regular rhythm, regular rate no murmurs, rubs, or gallops. Normal S1 and S2, no S3 noticed. PMI is normal. Respiratory: Equal breath sounds bilaterally, no tachypnea; lungs clear to auscultation bilaterally, no wheezing ,rub or rales, or crackles. Chest wall is symmetric and without deformity. No signs of trauma. Chest wall is nontender. No signs of respiratory distress. Resonance is normal upon percussion bilaterally. Gastrointestinal: Abdomen symmetric, non-distended, soft, non-tender, normal bowel sounds x4 quadrant, normoactive, no hepatosplenomegaly , no masses , no bruit, no flank pain bilaterally. No voluntary guarding, rebound, or rigidity. No tenderness to percussion. No pulsatile masses. Equal femoral pulses. No Burnett's sign or McBurney point tenderness. Back; no CVA tenderness bilaterally, no deformities. Neck and back are without deformity as well. No tenderness noted on palpation of the spinous processes. Spinous processes are midline. Cervical, thoracic, and lumbar paraspinal muscles are not tender and are without spasm. Musculoskeletal: Extremities, normal range of motion, non-tender, muscle strength 5/5 x 4. Negative Homans signs bilaterally on lower extremity. Distal pulses full symmetrical, no clubbing, cyanosis , edema. Neurological: Speech is clear, alert, and oriented x 4. No motor or sensory deficit, deep tendon reflexes normal, cerebellar intact. Cranial nerves II-XII intact. Psych: Alert and or appropriate, normal affect. Vascular: Good distal pulses, which are equal x4; capillary refill less than 2 seconds. Lymphatic, no lymphadenopathy. Result Diagram: 10/31/2562110/31/25621 Problem\Assessment\Plan Assessment/Plan Syncope History of seizure as a child Likely due to seizures Stroke not ruled out Non ST-elevation PA, laxatives pending, on aspirin statin Patient lost consciousness prolonged period of time Had postictal confusion, and bowel incontinence Blood glucose within normal range Slightly increased WBC count 12.6 EKG shows sinus rhythm, no acute ST changes CT head shows no signs of acute intracranial abnormality Chest/thorax CTA shows no evidence of pulmonary embolism or acute intrathoracic abnormality MRI brain ordered, pending CPK ordered U tox, urine analysis ordered. EEG ordered. Pending orthostatics have been ordered echocardiogram, carotid ultrasound completed Patient on telemetry monitoring Tele neuro consulted seizure precautions. Troponinemia Likely due to type 2 PA Troponins 161,263, 257,187 Patient denies any complaints of chest pain EKG shows no acute ischemic changes Mild hypokalemia- K- 3.3 Patient on potassium replacement protocol GERD- Continue pantoprazole Disposition- patient on telemetry monitoring. Tele neuro has been consulted. Continue to monitor Code Status: Full code DVT Prophylaxis: SubQ heparin Lines/Tubes: PIV Nutrition: Regular Prognosis: Guarded Sepsis Screening Reassessment Date: Oct 31, 2025 Date of Service: Oct 31, 2025 Billing Provider: NIDIA HEARN MD Common Visit Codes: 26459-[id number] INP/OBS CARE(HIGH) NIDIA HEARN MD Oct 31, 2025 20:18
[2025-10-31] MEDS ORDERED: metoprolol tartrate 1mg/ml inj IV PRN (21:30)
[2025-11-01] VITALS (21 sets, daily range): BP systolic 112–153; BP diastolic 67–83; PULSE 66–131; RESP 13–18; TEMP 97.2–98.2; O2SAT 94–99
[2025-11-01] MEDS: aspirin 81mg, enteric-coated 1 TAB TABLET.DR PO SCH
[2025-11-01 07:02] LABS: MEAN PLATELET VOLUME 7.5 FL (7.4-10.4); RED CELL DISTRIBUTION WIDTH 14.3 % (11.5-14.5)
--- NOTE | 2025-11-01 07:03 | BLUE [facility]Y NEURO CONSULT REPORT ---
[facility] Procedure Note [facility] Procedure Note Consult [facility] Note # Demographics Type of EEG Read: - Prolonged EEG - video Patient Location: Inpatient First Name: Yash Last Name: Luma Date of : 1965 Age: 59 Gender: Female Facility: [facility] Time of Initial Page (): 10/31/2025 11:42 First Contact with Site (): 10/31/2025 11:43 # EEG Interpretation Start Time of EEG Read (): 10/31/2025 11:47 Stop Time of EEG Read (): 10/31/2025 12:32 Duration: 0h 45m Technical Details: - The EEG electrodes were placed using the standard International 10-20 system of electrode placement. Video and an accessory EKG lead were used during the course of this study. - This study was recorded using the [employer] EEG software Indication: - altered mental status # Description Photic Stimulation: NOT Performed Hyperventilation: NOT performed Phases Captured: - awake - drowsy Symmetry: symmetric Posterior Dominant Rhythm: The record is continuous, of normal amplitude and bilaterally symmetrical. There poorly sustained posterior dominant rhythm 9-10 Hz. There is a moderate amount of diffuse low amplitude 15-25 Hz beta activity and moderate amount of 4-7 Hz theta activity. Occasional <4 Hz delta activity is present. With drowsiness, there is attenuation of the background alpha activity and a shift to slower frequencies. Amplitude: normal Reactivity: yes Variability: yes Continuity: continuous EKG: NSR # Abnormalities Epileptiform Abnormalities: - NOT present Focal Slowing: no Seizure: - NOT present # Impression Impression: abnormal 1. Mild Diffuse Slowing # Clinical Correlation Clinical Correlation: 1. Diffuse slowing is non-specific and may be seen in the setting of diffuse cerebral dysfunction; such as toxic/metabolic/infectious en cephalopathy or heavily sedating medication use. # Demographics First Name: Yash Last Name: Luma Facility: [facility] Neuro Consult Order placed for: Yes SEGUNDO CHASE MD Nov 01, 2025 07:03
[2025-11-01 07:11] LABS: CREATININE 0.69 MG/DL (0.40-0.90); TOTAL CARBON DIOXIDE 27.5 MMOL/L (24-32); eCRCL 61 ML/MIN; eGFR 88 ML/MIN
[2025-11-01] MEDS: regadenoson 0.4mg/5ml syringe IV PRN (09:14)
[2025-11-01] MEDS: aminophylline 250mg/10ml inj. IV PRN (09:17)
--- NOTE | 2025-11-01 11:03 | RADIOLOGY REPORT ---
CLINICAL INFORMATION: Myocardial infarction. TECHNIQUE: 8.6 mCi of technetium 99m sestamibi was infused at rest. Rest SPECT imaging was obtained. Routine protocol for Lexiscan stress study was performed with 0.4 mg of Lexiscan. 34.2 mCi of technetium 99m sestamibi was infused. Stress SPECT imaging was obtained. 75 mg aminophylline was administered for nausea and elevated heart rate. COMPARISON: None FINDINGS: Resting heart rate of 69 BPM increased to maximum rate of 130 BPM. Resting blood pressure of 148/78 increased to 153/71. There were no significant EKG changes. The patient experienced nausea and elevated heart rate. There is no evidence of stress induced ischemia or stress dilatation of the left ventricle. TID ratio is 1.21. Wall motion imaging appears normal. Calculated left ventricular ejection fraction is 72%. IMPRESSION: 1. No evidence of stress-induced ischemia. 2. Left ventricular ejection fraction is 72%.
--- NOTE | 2025-11-01 16:37 | RADIOLOGY REPORT ---
CLINICAL INDICATION: syncope COMPARISON: CT CT HEAD on DOS: 10/30/25 TECHNIQUE: Multisequence multiplanar MRI images of the brain were obtained without contrast. FINDINGS: No acute infarct or hemorrhage. No mass or midline shift. Ventricles and sulci are within normal limits. Basal cisterns are patent. Cerebellum, brainstem, and midline structures are within normal limits. Paranasal sinuses are clear. Orbits are grossly unremarkable. IMPRESSION: No evidence of acute intracranial abnormality.
--- NOTE | 2025-11-01 16:58 | PROGRESS NOTE ---
Daily Progress Note Providers to CC No complaint, resting comfortably in the bed ~ Central Line/PICC still needed: No Wagner-Non Protocol Wagner Indications Met/Not Met: F/C Indications Not Met Antibiotic Timeout Antibiotic Ordered?: No MRSA Education MRSA Education Provided to pt: No Subjective As above Objective Vital Signs Date Time Temp Pulse Resp B/P (MAP) Pulse Ox O2 Delivery O2 Flow Rate FiO2 11/01/25 15:53 18 11/01/25 12:00 69 136/75 (95) 11/01/25 11:00 98.1 98 Room Air 11/01/25 08:00 0.0 10/31/25 19:30 21 Vital signs, stable ,afebrile. Pulse Oximetry reflects adequate oxygenation. General: well developed, well nourished. Awake , alert, and oriented x4, resting comfortably in the bed, in no acute distress . Skin: Warm, dry, no pallor, no rash or petechiae. HEENT: Atraumatic, normocephalic, EOMI, anicteric sclera B; pink conjunctiva; PERRLA, normal oropharynx, moist oral and nasal mucosa. Tympanic membrane , nose , throat clear. Neck: Trachea midline. Supple, full range of motion, no JVD, bruit , hepatojugular reflex , lymphadenopathy or masses, or other lesions Cardiac: Regular rhythm, regular rate no murmurs, rubs, or gallops. Normal S1 and S2, no S3 noticed. PMI is normal. Respiratory: Equal breath sounds bilaterally, no tachypnea; lungs clear to auscultation bilaterally, no wheezing ,rub or rales, or crackles. Chest wall is symmetric and without deformity. No signs of trauma. Chest wall is nontender. No signs of respiratory distress. Resonance is normal upon percussion bilaterally. Gastrointestinal: Abdomen symmetric, non-distended, soft, non-tender, normal bowel sounds x4 quadrant, normoactive, no hepatosplenomegaly , no masses , no bruit, no flank pain bilaterally. No voluntary guarding, rebound, or rigidity. No tenderness to percussion. No pulsatile masses. Equal femoral pulses. No Burnett's sign or McBurney point tenderness. Back; no CVA tenderness bilaterally, no deformities. Neck and back are without deformity as well. No tenderness noted on palpation of the spinous processes. Spinous processes are midline. Cervical, thoracic, and lumbar paraspinal muscles are not tender and are without spasm. Musculoskeletal: Extremities, normal range of motion, non-tender, muscle strength 5/5 x 4. Negative Homans signs bilaterally on lower extremity. Distal pulses full symmetrical, no clubbing, cyanosis , edema. Neurological: Speech is clear, alert, and oriented x 4. No motor or sensory deficit, deep tendon reflexes normal, cerebellar intact. Cranial nerves II-XII intact. Psych: Alert and or appropriate, normal affect. Vascular: Good distal pulses, which are equal x4; capillary refill less than 2 seconds. Lymphatic, no lymphadenopathy. Result Diagram: 11/01/2563711/01/25637 Problem\Assessment\Plan Assessment/Plan Syncope History of seizure as a child Likely due to seizures Stroke not ruled out Non ST-elevation PR, laxatives pending, on aspirin statin Patient lost consciousness prolonged period of time Had postictal confusion, and bowel incontinence Blood glucose within normal range Slightly increased WBC count 12.6 EKG shows sinus rhythm, no acute ST changes CT head shows no signs of acute intracranial abnormality Chest/thorax CTA shows no evidence of pulmonary embolism or acute intrathoracic abnormality MRI brain ordered, pending CPK ordered U tox, urine analysis ordered. EEG ordered. Pending orthostatics have been ordered echocardiogram, carotid ultrasound completed Patient on telemetry monitoring Tele neuro consulted seizure precautions. Troponinemia Likely due to type 2 PR Troponins 161,263, 257,187 Patient denies any complaints of chest pain EKG shows no acute ischemic changes Mild hypokalemia- K- 3.3 Patient on potassium replacement protocol GERD- Continue pantoprazole Disposition- patient on telemetry monitoring. Tele neuro has been consulted. Continue to monitor Code Status: Full code DVT Prophylaxis: SubQ heparin Lines/Tubes: PIV Nutrition: Regular Prognosis: Guarded Sepsis Screening Reassessment Date: Nov 01, 2025 Date of Service: Nov 01, 2025 Billing Provider: NIDIA HEARN MD Common Visit Codes: [id number] INP/OBS CARE(HIGH) NIDIA HEARN MD Nov 01, 2025 16:58
[2025-11-02 02:00] VITALS: BP 113/71; PULSE 62; RESP 16; TEMP 97.1; O2SAT 97
[2025-11-02 07:19] LABS: MEAN PLATELET VOLUME 7.3 FL (7.4-10.4); RED CELL DISTRIBUTION WIDTH 14.1 % (11.5-14.5)
[2025-11-02 07:40] LABS: CREATININE 1.00 MG/DL (0.40-0.90); TOTAL CARBON DIOXIDE 28.5 MMOL/L (24-32); eCRCL 42 ML/MIN; eGFR 57 ML/MIN
[2025-11-02 08:00] VITALS: RESP 18; O2SAT 99
[2025-11-02 11:15] VITALS: BP 123/68; PULSE 80; RESP 14; TEMP 98.5; O2SAT 96
--- NOTE | 2025-11-02 17:31 | DISCHARGE SUMMARY ---
Discharge Summary Providers to No new complaint today, asking to be discharged home ~ Discharge Summary Assessment Hypertension syncope type 2 SD secondary to uncontrolled hypertension kalemia Gerd seizures as a child Admission Diagnosis: Syncope Admission Diagnosis Comment: Hypertension syncope type 2 SD secondary to uncontrolled hypertension kalemia Gerd seizures as a child Hospital Course DATE OF ADMISSION: October 30, 2025 DATE OF DISCHARGE: November [id number] Discharge Diagnosis\Comment: Hypertension syncope type 2 SD secondary to uncontrolled hypertension kalemia Gerd seizures as a child Operations\Procedures: None Consultants: Virtual neurology Complications: Non Condition on DC: Stable Discharge Summary: This is a 59-year-old female with past medical history of hypertension and GERD was brought to our facility in a helicopter due to an episode of syncope. Patient's and daughter were present at the bedside at the time of the examination. According to them when the returned back from work, he found the patient in the bath tub unconscious. He immediately pulled her out and placed her on the floor. He saw that the patient was unconscious, had stiff body, was clenching her teeth tight . He immediately tried opening her mouth which is very stiff and put in a piece of cloth in it. As the patient was still unconscious and not responding to him, he started performing chest compressions on her for about 20 minutes. After stopping the compressions, in about 10 minutes or so the patient regained back her consciousness. Patient was confused, was feeling extremely weak. reports that he noticed some stools in the bathtub. The patient says that she did not have any symptoms prior to passing out in the bathtub, denied any complaints of chest pain, palpitations, dizziness, shortness of breath. The patient Does not remember anything else until after regaining consciousness. The immediately called 911 who brought patient to the ED. Patient says that she went into the bathtub at around 12:00 p.m. in the afternoon, and by the time the saw her, was around 1:30. Patient also reports that she had an episode of syncope earlier, not sure how long ago due to dizziness. Patient does report some chest discomfort, most likely from the chest compressions her performed on her. She also reports having mild bilateral headache, squeezing type. Denies any other complaints of shortness of breath, cough, chills, fevers. Intubation was extensively evaluated treated today she is feeling fine asking to be discharged home, medication reconciled, she will be discharged in stable condition follow-up with PCP Neurology in two days, recommended not to drive until cleared by neurologist, patient understood, today on physical exam, Vital signs, stable ,afebrile. Pulse Oximetry reflects adequate oxygenation. General: well developed, well nourished. Awake , alert, and oriented x4, resting comfortably in the bed, in no acute distress . Skin: Warm, dry, no pallor, no rash or petechiae. HEENT: Atraumatic, normocephalic, EOMI, anicteric sclera B; pink conjunctiva; PERRLA, normal oropharynx, moist oral and nasal mucosa. Tympanic membrane , nose , throat clear. Neck: Trachea midline. Supple, full range of motion, no JVD, bruit , hepatojugular reflex , lymphadenopathy or masses, or other lesions Cardiac: Regular rhythm, regular rate no murmurs, rubs, or gallops. Normal S1 and S2, no S3 noticed. PMI is normal. Respiratory: Equal breath sounds bilaterally, no tachypnea; lungs clear to auscultation bilaterally, no wheezing ,rub or rales, or crackles. Chest wall is symmetric and without deformity. No signs of trauma. Chest wall is nontender. No signs of respiratory distress. Resonance is normal upon percussion bilaterally. Gastrointestinal: Abdomen symmetric, non-distended, soft, non-tender, normal bowel sounds x4 quadrant, normoactive, no hepatosplenomegaly , no masses , no bruit, no flank pain bilaterally. No voluntary guarding, rebound, or rigidity. No tenderness to percussion. No pulsatile masses. Equal femoral pulses. No Burnett's sign or McBurney point tenderness. Back; no CVA tenderness bilaterally, no deformities. Neck and back are without deformity as well. No tenderness noted on palpation of the spinous processes. Spinous processes are midline. Cervical, thoracic, and lumbar paraspinal muscles are not tender and are without spasm. Musculoskeletal: Extremities, normal range of motion, non-tender, muscle strength 5/5 x 4. Negative Homans signs bilaterally on lower extremity. Distal pulses full symmetrical, no clubbing, cyanosis , edema. Neurological: Speech is clear, alert, and oriented x 4. No motor or sensory deficit, deep tendon reflexes normal, cerebellar intact. Cranial nerves II-XII intact. Psych: Alert and or appropriate, normal affect. Vascular: Good distal pulses, which are equal x4; capillary refill less than 2 seconds. Lymphatic, no lymphadenopathy. *Problems/Diagnosis: (1) Syncopal episodes Status: Acute Total Time Spent on D/C: > 30 Minutes Date of Service: Nov 02, 2025 Billing Provider: NIDAI HEARN MD Common Visit Codes: 56329-EZG/OBS DISCH DAY >30min NIDIA HEARN MD Nov 02, 2025 17:31
== END 2025-11-02 12:50 | disposition home or self-care (01) | DRG 282 ==
LOC: ER 15:46 → ED HOLD 20:13 → PCU 3S 10-31 02:32 → SUR 3N 11-02 11:25
PROVIDERS: ADMIT Internal Medicine; ATTEND Family Medicine
PROC: B32T1ZZ Computerized Tomography (CT Scan) of Left Pulmonary Artery using Low Osmolar Contrast (ICD-10-PCS; principal; 2025-10-30)
PROC: B3201ZZ Computerized Tomography (CT Scan) of Thoracic Aorta using Low Osmolar Contrast (ICD-10-PCS; 2025-10-30)
PROC: B32S1ZZ Computerized Tomography (CT Scan) of Right Pulmonary Artery using Low Osmolar Contrast (ICD-10-PCS; 2025-10-30)
PROC: 4A00X4Z Measurement of Central Nervous Electrical Activity, External Approach (ICD-10-PCS; 2025-10-31)
PROC: 3E073KZ Introduction of Other Diagnostic Substance into Coronary Artery, Percutaneous Approach (ICD-10-PCS; 2025-11-01)
PROC: 4A02XM4 Measurement of Cardiac Total Activity, External Approach (ICD-10-PCS; 2025-11-01)
DX: R55 Syncope and collapse (principal); I21.A1 Myocardial infarction type 2; R56.9 Unspecified convulsions; I10 Essential (primary) hypertension; K21.9 Gastro-esophageal reflux disease without esophagitis; E87.6 Hypokalemia; Z88.8 Allergy status to other drugs, medicaments and biological substances
CPT/HCPCS: 36415; 70450; 70551; 71045; 71275; 78452; 80048; 80053; 80061; 80305; 81001; 83036; 83735; 83880; 84484; 85025; 87081; 93005; 93017; 93306; 93880; 95813; 99285; A9500; G0378; J0280; J1644; J2785; J7030